=== PATIENT | male | born 1975 | race Caucasian/White ===

== ENCOUNTER → 2019-06-28 | Outpatient (CLI) | payer MEDICARE, MEDICAID ==
[~2019-06-28] MED LIST: IOHEXOL-300 50 ML BOTTLE IV ONE
== END | disposition home or self-care (01) ==
LOC: PVL 13:06
PROVIDERS: ATTEND Internal Medicine Nephrology
DX: T85.611A Breakdown (mechanical) of intraperitoneal dialysis catheter, initial encounter (principal); I73.9 Peripheral vascular disease, unspecified
CPT/HCPCS: 76000; 93923; Q9967

== ENCOUNTER → 2019-08-30 | Day surgery (SDC) | payer MEDICARE, MEDICAID ==
[~2019-08-30] MED LIST changes: +IOHEXOL-300 100 ML BOTTLE ONE; -IOHEXOL-300 50 ML BOTTLE IV ONE
== END | disposition home or self-care (01) ==
LOC: RAD 12:48
PROVIDERS: ATTEND Internal Medicine Nephrology
DX: N26.1 Atrophy of kidney (terminal) (principal); R16.2 Hepatomegaly with splenomegaly, not elsewhere classified; R16.1 Splenomegaly, not elsewhere classified
CPT/HCPCS: 74176; Q9967